=== PATIENT | female | born 1945 | race Caucasian/White ===

== ENCOUNTER 2017-12-27 17:45 | Emergency (ER) | payer OTHER ==
[~2017-12-27] VITALS: Ht 165.1 cm; Wt 63.6 kg
[2017-12-27] MEDS ORDERED: PERCOCET 5/31 TABLET PO (21:12)
[2017-12-27 21:28] VITALS: BP 143/93
== END 2017-12-27 21:29 | disposition home or self-care (01) ==
LOC: EME 17:45
DX: S32.591A Other specified fracture of right pubis, initial encounter for closed fracture (principal); M81.0 Age-related osteoporosis without current pathological fracture; W18.39XA Other fall on same level, initial encounter; Y93.K1 Activity, walking an animal
CPT/HCPCS: 73502